=== PATIENT | male | born 1955 | race Two or more races ===

== ENCOUNTER 2021-11-28 17:42 | Emergency (ER) | payer OTHER ==
[~2021-11-28] VITALS: Ht 165.1 cm; Wt 93.9 kg
[2021-11-28] MEDS ORDERED: PROTONIX40 MG PO (18:39)
[2021-11-28] MEDS ORDERED: ATORVASTATIN CA10 MG (18:39)
[2021-11-28] MEDS ORDERED: GLIPIZIDE XL10 MG (18:39)
[2021-11-28] MEDS ORDERED: CARVEDILOL3.125 M1 PO (18:39)
[2021-11-28] MEDS ORDERED: HYDROCHLOROTH12.5 MG PO (18:40)
[2021-11-28] MEDS ORDERED: OCUVITE EYE HE1 EACH (18:40)
[2021-11-28] MEDS ORDERED: INVOKANA100 MG (18:40)
== END 2021-11-29 01:13 | disposition home or self-care (01) ==
LOC: ER 17:42
DX: R31.9 Hematuria, unspecified (principal); N20.0 Calculus of kidney; N20.1 Calculus of ureter; K74.60 Unspecified cirrhosis of liver

== ENCOUNTER 2021-12-22 18:18 | Emergency (ER) | payer OTHER ==
[~2021-12-22] VITALS: Ht 165.1 cm; Wt 92.5 kg
[~2021-12-22 18:18] MED LIST: ATORVASTATIN CA10 MG; CARVEDILOL3.125 M1 PO; GLIPIZIDE XL10 MG; HYDROCHLOROTH12.5 MG PO; INVOKANA100 MG; OCUVITE EYE HE1 EACH; PROTONIX40 MG PO
== END 2021-12-23 00:43 | disposition home or self-care (01) ==
LOC: ER 18:18
DX: N20.2 Calculus of kidney with calculus of ureter (principal); N13.30 Unspecified hydronephrosis; R31.9 Hematuria, unspecified